=== PATIENT | male | born 1965 | race Caucasian/White ===

== ENCOUNTER 2020-02-14 00:40 | Emergency (ER) | payer MEDICAID ==
[~2020-02-14] VITALS: Ht 162.6 cm; Wt 81.8 kg
[2020-02-14 02:23] VITALS: BP 122/82
== END 2020-02-14 02:23 | disposition home or self-care (01) ==
LOC: ED 00:40
DX: S43.401A Unspecified sprain of right shoulder joint, initial encounter (principal); W18.39XA Other fall on same level, initial encounter; Y93.89 Activity, other specified; Y92.89 Other specified places as the place of occurrence of the external cause; Y99.8 Other external cause status
CPT/HCPCS: Q0092

== ENCOUNTER 2020-03-24 08:41 | Emergency (ER) | payer MEDICAID ==
[~2020-03-24] VITALS: Ht 170.2 cm; Wt 82.1 kg
[2020-03-24 08:49] VITALS: Ht 170.2 cm; Wt 82.1 kg
[2020-03-24 10:38] VITALS: BP 116/74
== END 2020-03-24 10:38 | disposition home or self-care (01) ==
LOC: ED 08:41
DX: S76.012A Strain of muscle, fascia and tendon of left hip, initial encounter (principal); X58.XXXA Exposure to other specified factors, initial encounter; Y93.89 Activity, other specified; Y92.89 Other specified places as the place of occurrence of the external cause; Y99.8 Other external cause status
CPT/HCPCS: J1885

== ENCOUNTER 2020-06-25 13:11 | Emergency (ER) | payer MEDICAID, SELFPAY ==
[~2020-06-25] VITALS: Ht 165.1 cm; Wt 81.6 kg
[~2020-06-25 13:11] MED LIST: DECADRON4 MG PO; PROA PO; VENTOLIN H0.09 MG/A1 INH
[2020-06-25 13:13] VITALS: Ht 165.1 cm; Wt 81.6 kg
[2020-06-25 14:26] VITALS: BP 137/82
== END 2020-06-25 14:26 | disposition home or self-care (01) ==
LOC: ED 13:11
DX: I10 Essential (primary) hypertension (principal)

== ENCOUNTER 2020-07-12 11:40 | Emergency (ER) | payer MEDICAID ==
[~2020-07-12] VITALS: Ht 162.6 cm; Wt 80.3 kg
[2020-07-12 12:25] VITALS: BP 138/94; Ht 162.6 cm; Wt 80.3 kg
[2020-07-12] MEDS ORDERED: MOT800 PO (14:17)
[2020-07-12] MEDS ORDERED: ULTRAM50 MG PO (14:17)
== END 2020-07-12 14:36 | disposition home or self-care (01) ==
LOC: ED 11:40
DX: M25.512 Pain in left shoulder (principal); W17.89XA Other fall from one level to another, initial encounter; Y93.89 Activity, other specified; Y92.89 Other specified places as the place of occurrence of the external cause; Y99.8 Other external cause status